=== PATIENT | female | born 1995 | race Caucasian/White ===

== ENCOUNTER 2017-07-01 00:58 | Emergency (ER) | payer SELFPAY ==
[2017-07-01 01:16] VITALS: BP 146/75; PULSE 87; TEMP 98.3; BMI 26.5
[2017-07-01] MEDS ORDERED: ERYTHROMYCIN 0.5% OPHTHALMIC OINTMENT 3.5 GM TUBE OS ONE (03:38)
--- NOTE | 2017-07-01 03:48 | PDOC ---
History of Present Illness - General Chief Complaint: Pain Stated Complaint: SWELLING/LT EYE Time Seen by Provider: 07/01/17 03:12 - History of Present Illness Initial Comments: 07/01/17 03:41 CHIEF COMPLAINT: Left eye redness, itching and gritty sensation with blinking HISTORY OF PRESENT ILLNESS: This is a 21yo woman without PMH who presents today with left eye redness, itching and gritty sensation with blinking. She states that while she was feeding her , she noticed her eye was irritated and her eyelids became swollen. She denies change in vision. Thick yellow drainage present at the inner canthus. She denies sick contacts. She denies fevers, retrobulbar pain, trauma or splashes into her eye. REVIEW OF SYSTEMS: GENERAL/CONSTITUTIONAL: No fever or chills. No weakness. No weight change. HEAD, EYES, EARS, NOSE AND THROAT: No change in vision. Drainage and pruritus to left eye. No ear pain or discharge. No sore throat. RESPIRATORY: No cough, wheezing, or hemoptysis. SKIN : No rash or easy bruising. NEUROLOGIC: No headache, vertigo, loss of consciousness, or loss of sensation. HEMATOLOGIC/LYMPHATIC: No lymphadenopathy ALLERGIC/IMMUNOLOGIC: No hives or skin allergy. No latex allergy. PHYSICAL EXAM: GENERAL: The patient is awake, alert, and fully oriented, in no acute distress. HEAD: Normal with no signs of trauma. EYES: Pupils equal, round and reactive to light, extraocular movements intact, sclera anicteric, conjunctiva injected, extending to limbus after fluorescein staining, no corneal abrasion noted. No entrapment present. ENT: Ears normal, nares patent, oropharynx clear without exudates. Moist mucous membranes. NECK: Normal range of motion, supple without lymphadenopathy, JVD, or masses. LUNGS: Breath sounds equal, clear to auscultation bilaterally. No wheezes, and no crackles. NEUROLOGICAL: Cranial nerves II through XII grossly intact. Normal speech, normal gait. SKIN: No erythema no facial edema. Warm, Dry, normal turgor, no rashes or lesions noted. Timing/Duration: 4-6 hours Severity: mild Past History - Past Medical History Allergies/Adverse Reactions: Allergies Allergy/AdvReac Type Severity Reaction Status Date / Time No Known Drug Allergies Allergy Verified 07/01/17 01:12 Home Medications: Ambulatory Orders Nitrofurantoin Monohyd/M-Cryst [Macrobid -] 100 mg PO BID #14 capsule 10/26/15 Erythromycin 0.5% Eye Ointment [Erythromycin 0.5% Eye Ointment -] 1 applic AU TID #1 tube 07/01/17 Anemia: No Asthma: No Cancer: No Cardiac Disorders: No CVA: No COPD: No CHF: No Dementia: No Diabetes: No GI Disorders: No Disorders: No HTN: No Hypercholesterolemia: No Liver Disease: No Suicide Attempt (Hx): No Seizures: No Thyroid Disease: No Other medical history: Pt denies - Surgical History Abdominal Surgery: No Appendectomy: No Cardiac Surgery: No Cholecystectomy: No Lung Surgery: No Neurologic Surgery: No Orthopedic Surgery: No - Immunization History Immunization Up to Date: Yes - Psycho/Social/Smoking Cessation Hx Anxiety: No Suicidal Ideation: No Smoking History: Never smoked Number of Cigarettes Smoked Daily: 0 Cigars Per Day: 0 Information on smoking cessation initiated: No Hx Alcohol Use: No Drug/Substance Use Hx: No Substance Use Type: None Hx Substance Use Treatment: No Review of Systems - Review of Systems Able to Perform ROS?: Yes Is the patient limited Hungarian proficient: No Constitutional: No: Symptoms Reported HEENTM: Yes: See HPI. No: Tearing Respiratory: No: Symptoms reported Cardiac (ROS): No: Symptoms Reported ABD/GI: No: Symptoms Reported : No: Symptoms Reported Musculoskeletal: No: Symptoms Reported Integumentary: No: Symptoms Reported Neurological: No: Symptoms reported *Physical Exam - Vital Signs Last Vital Signs Temp Pulse Resp BP Pulse Ox 98.3 F 87 20 146/75 99 07/01/17 01:12 07/01/17 01:12 07/01/17 01:12 07/01/17 01:07/01/17 01:12 - Physical Exam General Appearance: Yes: Appropriately Dressed. No: Apparent Distress HEENT: positive: EOMI, TRIXIE, Normal ENT Inspection, Orbits (non tender). negative: Photophobia, Pharyngeal Erythema, Tonsillar Exudate, Tonsillar Erythema, Nasal Congestion Neck: positive: Trachea midline, Supple Respiratory/Chest: positive: Lungs Clear, Normal Breath Sounds. negative: Respiratory Distress, Accessory Muscle Use Cardiovascular: positive: Regular Rhythm, Regular Rate, S1, S2. negative: Edema , JVD, Murmur Musculoskeletal: positive: Normal Inspection. negative: CVA Tenderness Extremity: positive: Normal Capillary Refill Integumentary: positive: Normal Color, Dry, Warm Neurologic: positive: carry all driver II-XII NML intact, Fully Oriented, Alert, Normal Mood/ Affect, Motor Strength 5/5 Medical Decision Making - Medical Decision Making 07/01/17 03:49 A/P: 21yo woman with conjunctivitis. Likely bacterial given unilateral, conjunctival injection into the limbus and purulent discharge from left eye. I discussed the physical exam findings, ancillary test results and final diagnoses with the patient. I answered all of the patient's questions. The patient was satisfied with the care received and felt comfortable with the discharge plan and treatment plan. The patient will call her doctor within 48 hours to arrange follow-up and will return to the Emergency Department with any new, persistent or worsening symptoms. - EES ointment - discharge 07/01/17 03:58 *DC/Admit/Observation/Transfer Diagnosis at time of Disposition: Bacterial conjunctivitis of left eye - Discharge Dispostion Disposition: HOME Condition at time of disposition: Stable Admit: No - Prescriptions Prescriptions: Erythromycin 0.5% Eye Ointment [Erythromycin 0.5% Eye Ointment -] 1 applic AU TID #1 tube - Referrals Referrals: Yazan Garcias MD [Staff Physician] - - Patient Instructions Additional Instructions: Coloque pomada de eritromicina en el kailee alyson 3 veces al da. Lvese las uday cada vez que toque los ojos. NO toque a culver hijo sin lavarse las uday. [place] benadryl segn sea necesario para la picazn segn las instrucciones del fabricante. Nicolasa luz irais con culevr mdico si los sntomas no mejoran en 48 horas. Vuelva a la mary grace de emergencia si tiene dolor en los ojos empeorando, cambio de visin o cualquier otra queja.
[2017-07-01] MEDS ORDERED: ERYTHROMYCIN 0.5% OPHTHALMIC OINTMENT 3.5 GM TUBE ONE (03:54)
[2017-07-01] MEDS ORDERED: diphenhydrAMINE HCL 25 MG CAPSULE (FP) PO ONE ×2 (04:07→04:08)
== END 2017-07-01 04:28 | disposition home or self-care (01) ==
LOC: JER 00:58
DX: H10.9 Unspecified conjunctivitis (principal)
CPT/HCPCS: 99282-25

== ENCOUNTER 2020-11-25 11:12 | Emergency (ER) | payer SELFPAY ==
[2020-11-25 11:18] VITALS: BP 109/83; PULSE 90; TEMP 98.8; BMI 27.1
[2020-11-25] MEDS ORDERED: KETOROLAC TROMETHAMINE 60 MG/2 ML VIAL IM ONE (11:38)
[2020-11-25] MEDS ORDERED: KETOROLAC TROMETHAMINE 60 MG/2 ML VIAL ONE (11:47)
== END 2020-11-25 13:28 | disposition home or self-care (01) ==
LOC: JERFT 11:12
PROC: 3E0233Z Introduction of Anti-inflammatory into Muscle, Percutaneous Approach (ICD-10-PCS; principal; 2020-11-25)
DX: I72.9 Aneurysm of unspecified site (principal)
CPT/HCPCS: 70450-TC; 84703; 99285-25

== ENCOUNTER 2020-12-11 15:49 | Emergency (ER) | payer OTHER ==
[2020-12-11 16:41] VITALS: BP 140/90; PULSE 75; TEMP 98.6; BMI 26.2
[2020-12-11] MEDS ORDERED: METOCLOPRAMIDE HCL 10 MG TABLET (FP) PO ONE (17:16)
[2020-12-11] MEDS ORDERED: ACETAMINOPHEN/CAFFEINE/BUTALBITAL 1 TAB PO ONE ×2 (17:16→17:20)
== END 2020-12-11 21:00 | disposition home or self-care (01) ==
LOC: JER 15:49
DX: R51.9 Headache, unspecified (principal)
CPT/HCPCS: 70544-TC; 70551-TC; 93005; 93010; 99284-25